=== PATIENT | male | born 1945 | race Caucasian/White ===

== ENCOUNTER 2017-01-28 22:08 | Emergency (ER) | payer OTHER ==
[2017-01-28 22:16] VITALS: TEMP 97.9
--- NOTE | 2017-01-28 23:36 | EDPHY ---
H & P Stated Complaint: Left head pressure with "flashes" in L field of vision, onset 1999 Time Seen by Provider: 01/28/17 22:22 HPI/ROS: HPI The patient presents with vision changes in his left eye which began at approximately 8:00 p.m. tonight when he was out on a walk with his family. Up he said he slowly began to see thin black wide in the temporal aspect of his left eye which then began to flash. This lasted for about 2 hours until he came to the emergency room if his symptoms have subsided. He now denies any complaint. He denies any blurry vision, double vision, visual field cuts such as sensation of a curtain going over his eye. He is complaining of a mild left- sided headache. He does not have any dizziness, weakness of his arms or legs, nausea or vomiting, recent falls. 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 He believes the last time he was in atrial fibrillation was in early December. He had an MRI performed in April of 2016 which showed some ischemic changes and given his history of atrial fibrillation that is why he began Eliquis recently. REVIEW OF SYSTEMS Constitutional: No fever, no chills. Eyes: No discharge. ENT: No sore throat. Cardiovascular: No chest pain, no palpitations. Respiratory: No cough, no shortness of breath. Gastrointestinal: No abdominal pain, no vomiting. Genitourinary: No hematuria. Musculoskeletal: No back pain. Skin: No rashes. Neurological: Mild headache. PMHx: Paroxysmal atrial fibrillation on Eliquis Soc Hx: Lives at home with his family PHYSICAL General Appearance: Alert, no distress Eyes: Pupils equal and round no pallor or injection, pupils are equal and reactive, extraocular movements are full, visual ulloa are full ENT, Mouth: Mucous membranes moist Respiratory: There are no retractions, lungs are clear to auscultation Cardiovascular: Regular rate and rhythm Gastrointestinal: Abdomen is soft and non-tender, no masses, bowel sounds normal Neurological: A&O, cranial nerves 2-12 intact, 5/5 strength upper and lower extremities, normal finger to nose and heel to traore testing, speech is fluid Skin: Warm and dry, no rashes Musculoskeletal: Neck is supple non tender Extremities: symmetrical, full range of motion Psychiatric: Patient is oriented X 3, there is no agitation Source: Patient, Family Exam Limitations: No limitations - Personal History Current Tetanus/Diphtheria Vaccine: Unsure Current Tetanus Diphtheria and Acellular Pertussis (TDAP): Unsure - Medical/Surgical History Hx Asthma: No Hx Chronic Respiratory Disease: No Hx Diabetes: No Hx Cardiac Disease: Yes Hx Renal Disease: No Hx Cirrhosis: No Hx Alcoholism: No Hx HIV/AIDS: No Hx Splenectomy or Spleen Trauma: No Other PMH: 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 PSH: heart ablation, TURP - Social History Smoking Status: Never smoked Constitutional: Initial Vital Signs Temperature (C) 36.6 C 01/28/17 22:12 Heart Rate 67 01/28/17 22:12 Respiratory Rate 14 01/28/17 22:12 Blood Pressure 138/74 H 01/28/17 22:12 O2 Sat (%) 94 01/28/17 22:12 O2 Delivery Mode Room Air Allergies/Adverse Reactions: Penicillins Allergy (Intermediate, Verified 03/18/13 01:14) Rash Home Medications: Medication Instructions Recorded Eliquis 01/28/17 Medical Decision Making - Diagnostics Imaging Results: CT scan of head without contrast demonstrates no acute hemorrhage, no obvious signs of acute stroke. Imaging: Discussed imaging studies w/ scallop raker Radiologist Procedures: Bedside ocular Ultrasound- performed and interpreted by me. Indication: Vision changes Findings: Left orbit with no obvious retinal detachment, no vitreus detachment , no sign of globe rupture Impression: No left-sided retinal detachment Differential Diagnosis: This is a 71-year-old man with history of paroxysmal AFib, recently started on Eliquis who presents from home with transient vision change, noting flashing lights in his left temporal visual field unilaterally, lasting for about 2 hours , now completely resolved. This is associated with a mild headache possibly. On exam, he has normal vital signs, his heart rate is regular, he has a completely normal neurologic exam and his NIH stroke score is 0. Differential diagnosis includes ischemic stroke, intracranial hemorrhage, retinal detachment, vitreous detachment, vitreous hemorrhage. In the emergency room, the patient was placed on the monitoring analyst with no events. CT scan of his head was obtained which showed no acute changes. He had no continued symptoms. On reassessment he continued to feel well. He believes he has a follow-up appointment tomorrow with Dr. Mirza his neurologist. The pre-existing plan was for the patient have an outpatient MRI and carotid Dopplers given his MRI which showed ischemic changes in April of last year. I have offered him MRI in the emergency department, however he declines. He would rather follow up with his neurologist and get the MRI as an outpatient. I explained that without this, we cannot completely exclude TIA. However, I feel his decision to return home is reasonable given that he feels well, and symptoms could likely be due to alternative diagnosis such is vitreus hemorrhage. He will be discharged in the care of his family. Departure - Departure Disposition: Home, Routine, Self-Care Clinical Impression: Changes in vision Condition: Good Instructions: Blurred Vision (ED) Additional Instructions: Please follow-up with your neurologist in the next few days. Return to the emergency room if you have any recurrent symptoms. Referrals: Shanell Shipman, LEANDRA [Primary Care Provider] - As per Instructions Gay Mirza DO [Non Staff and Non MD] - As per Instructions
[2017-01-28 23:48] VITALS: BP 121/76; PULSE 74; RESP 16; O2SAT 96
== END 2017-01-28 23:47 | disposition home or self-care (01) ==
DX: H53.8 Other visual disturbances (principal); Z86.73 Personal history of transient ischemic attack (TIA), and cerebral infarction without residual deficits

== ENCOUNTER → 2017-01-30 | Outpatient (CLI) | payer OTHER ==
[~2017-01-30] MED LIST: GADOBUTROL 10 ML VIAL IVP ONE
== END ==
LOC: FIMAGING 13:22
PROVIDERS: ATTEND Psychiatry & Neurology Neurology
DX: R41.3 Other amnesia (principal); G45.9 Transient cerebral ischemic attack, unspecified; G93.89 Other specified disorders of brain
CPT/HCPCS: 70553; 93880; A9585

== ENCOUNTER 2017-08-07 12:08 | Emergency (ER) | payer OTHER ==
[2017-08-07 12:27] VITALS: RESP 16; TEMP 97.3
--- NOTE | 2017-08-07 12:40 | CPEKG ---
Heart Rate: 77 RR Interval: 779 QRSD Interval: 100 QT Interval: 372 QTC Interval: 421 QRS Branch: 77 T Wave Branch: -15 EKG Severity - ABNORMAL ECG - EKG Impression: A-FLUTTER W/ PREDOM 4:1 AV BLOCK, A-RATE 306 EKG Impression: NONSPECIFIC T ABNORMALITIES, INFERIOR LEADS Electronically Signed By: Krista Morrow 09-Aug-2017 14:16:46
--- NOTE | 2017-08-07 12:59 | EDPHY ---
HPI/HX/ROS/PE/MDM Narrative: CHIEF COMPLAINT: Atrial flutter HPI: This patient is an anticoagulated (Eliquis) 72 year old male complaining of a sensation of atrial fibrillation onset yesterday evening. He feels weak and has a sensation of his heart jumping around. These symptoms are similar to his prior episodes of atrial fibrillation. He denies chest pain, shortness of breath , or pain or swelling in his legs. No other symptoms in the last few days. No fever or recent illness. His last oral intake was around 12pm today. REVIEW OF SYSTEMS: Aside from elements discussed in the HPI, a comprehensive 10-point review of systems was reviewed and is negative. PMH: Paroxysmal atrial fibrillation (Eliquis, s/p ablation). History of CVAs diagnosed by MRI. TURP. Past medical records reviewed including ED visit 01/28/17 for vision changes. SOCIAL HISTORY: . Lives in [place]. Retired. Former small business owner/operator. PCP. Dr. Shipman. PHYSICAL EXAM: General:Patient is alert, in no acute distress. ENT:Eyes are normal to inspection. ENT inspection normal. Neck: Normal inspection. Full range of motion. Respiratory:No respiratory distress. Breath sounds normal bilaterally. Cardiovascular: Regular rate and rhythm. Strong peripheral pulses. Normal cap refill. Abdomen:The abdomen is nontender to palpation. There are no peritoneal signs. There are normal bowel sounds. Back: Normal to inspection. No tenderness to palpation. Skin: Normal color. No rash. Warm and dry. Extremities: Normal appearance. Full range of motion. Neuro: Oriented x3. Normal motor function. Normal sensory function. ED Course: 72 y/o male with history of paroxysmal atrial fibrillation presents with weakness and malaise onset yesterday evening consistent with his prior episodes of atrial fibrillation. Plan for EKG, labs including CBC, chemistries, troponin. 12:20 EKG was ordered and interpreted by myself. Please see [employer] system for official reading. Atrial flutter, ventricular rate 77. Consulted with Dr. Bowles, video game repair technician, and reviewed EKG and care plan. Plan to administer 10mg IV Diltiazem, observe. If patient does not convert to sinus rhythm spontaneously, he will be admitted for further observation and likely undergo electrical cardioversion with Dr. Bowles. 13:55 After administration of diltiazem, patient spontaneoulsy converted to sinus rhythm. Plan for repeat EKG to confirm. 13:58 EKG was ordered and interpreted by myself. Please see [employer] system for official reading. Sinus rhythm, rate 70. 14:02 Reassessed patient. Plan to discharge home in good condition. He will follow up with cardiology. Return precautions discussed. The patient is comfortable with this plan. - Data Points Laboratory Results: Laboratory Results 08/07/17 13:01 08/07/17 13:01 08/07/17 08/07/17 13:01 13:01 WBC 7.46 10^3/uL 10^3/uL (3.80-9.50) RBC 5.31 10^6/uL 10^6/uL (4.40-6.38) Hgb 16.5 g/dL g/dL (13.7-17.5) Hct 48.6 % % (40.0-51.0) MCV 91.5 fL fL (81.5-99.8) MCH 31.1 pg pg (27.9-34.1) MCHC 34.0 g/dL g/dL (32.4-36.7) RDW 12.3 % % (11.5-15.2) Plt Count 219 10^3/uL 10^3/uL (150-400) MPV 11.2 fL fL (8.7-11.7) Neut % (Auto) 58.1 % % (39.3-74.2) Lymph % (Auto) 31.0 % % (15.0-45.0) [place] % (Auto) 8.7 % % (4.5-13.0) Eos % (Auto) 1.3 % % (0.6-7.6) Baso % (Auto) 0.8 % % (0.3-1.7) Nucleat RBC Rel Count 0.0 % % (0.0-0.2) Absolute Neuts (auto) 4.33 10^3/uL 10^3/uL (1.70-6.50) Absolute Lymphs (auto) 2.31 10^3/uL 10^3/uL (1.00-3.00) Absolute Monos (auto) 0.65 10^3/uL 10^3/uL (0.30-0.80) Absolute Eos (auto) 0.10 10^3/uL 10^3/uL (0.03-0.40) Absolute Basos (auto) 0.06 10^3/uL 10^3/uL (0.02-0.10) Absolute Nucleated RBC 0.00 10^3/uL 10^3/uL (0-0.01) Immature Gran % 0.1 % % (0.0-1.1) Immature Gran # 0.01 10^3/uL 10^3/uL (0.00-0.10) Sodium 144 mEq/L mEq/L (134-144) Potassium 4.3 mEq/L mEq/L (3.5-5.2) Chloride 103 mEq/L mEq/L (97-110) Carbon Dioxide 26 mEq/l mEq/l (22-31) Anion Gap 15 mEq/L mEq/L (8-16) BUN 16 mg/dL mg/dL (7-23) Creatinine 0.8 mg/dL mg/dL (0.7-1.3) Estimated GFR > 60 Glucose 77 mg/dL mg/dL (70-100) Calcium 9.5 mg/dL mg/dL (8.5-10.4) Troponin I < 0.012 ng/mL ng/mL (0.000-0.034) Medications Given: Discontinued Medications Diltiazem HCl (Cardizem 25 Mg/5 Ml Vial) 10 mg IVP EDNOW ONE Stop: 08/07/17 13:32 Last Admin: 08/07/17 13:45 Dose: 10 mg Sodium Chloride (Ns) 500 mls @ 1,000 mls/hr IV EDNOW ONE PRN Reason: Protocol Stop: 08/07/17 14:00 Last Admin: 08/07/17 13:42 Dose: 500 mls General Time Seen by Provider: 08/07/17 12:57 Initial Vital Signs: Initial Vital Signs Temperature (C) 36.3 C 08/07/17 12:26 Heart Rate 84 08/07/17 12:26 Respiratory Rate 16 08/07/17 12:26 Blood Pressure 112/65 08/07/17 12:26 O2 Sat (%) 98 08/07/17 12:26 O2 Delivery Mode Room Air Allergies/Adverse Reactions: Penicillins Allergy (Intermediate, Verified 08/07/17 12:25) Rash Home Medications: Medication Instructions Recorded Osman 01/28/17 Departure - Departure Disposition: Home, Routine, Self-Care Clinical Impression: Atrial flutter Qualifiers: Atrial flutter type: typical Qualified Code(s): I48.3 - Typical atrial flutter Condition: Good Instructions: Atrial Flutter (ED) Additional Instructions: 1. Follow up with your video game repair technician for further evaluation. 2. Return to the Emergency Department for fever, chest pain, shortness of breath , increasing pain, weakness, fainting or other worsening of condition. Referrals: Shanell Shipman NP [Primary Care Provider] - As per Instructions Williams Hebert MD [Medical Doctor] - As per Instructions Report Scribed for: Ismael Elmore Report Scribed by: Alivia Levin Date of Report: 08/07/17 Time of Report: 12:59 Physician Review and Approval Statement: Portions of this note were transcribed by an ED scribe. I personally performed the history, physical exam, and medical decision making; and confirm the accuracy of the information in the transcribed note.
[2017-08-07] MEDS ORDERED: DILTIAZEM 25 MG/5 ML VIAL IVP ONE (13:31)
[2017-08-07] MEDS ORDERED: NS 500 ML IV ONE (13:31)
[2017-08-07 13:40] LABS: % IMMATURE GRANULYOCYTES 0.1 % (0.0-1.1); ABSOLUTE IMMATURE GRANULOCYTES 0.01 10^3/uL (0.00-0.10); ADD DIFF? NO; ADD MORPH? NO; ADD SCAN? NO; ATYPICAL LYMPHOCYTE FLAG 0 (0-99); FRAGMENT RBC FLAG 0 (0-99); HEMATOCRIT 48.6 % (40.0-51.0); HEMOGLOBIN 16.5 g/dL (13.7-17.5); LEFT SHIFT FLG 0 (0-99); LIPEMIA HEMOLYSIS FLAG 90 (0-99); MEAN CELL HEMOGLOBIN 31.1 pg (27.9-34.1); MEAN CELL VOLUME 91.5 fL (81.5-99.8); MEAN PLATELET VOLUME 11.2 fL (8.7-11.7); PLATELET CLUMPS FLAG 0 (0-99); PLATELET COUNT 219 10^3/uL (150-400); RED BLOOD CELL COUNT 5.31 10^6/uL (4.40-6.38); RED CELL DISTRIBUTION WIDTH 12.3 % (11.5-15.2)
[2017-08-07 13:43] LABS: ANION GAP 15 mEq/L (8-16); CALCIUM 9.5 mg/dL (8.5-10.4); CARBON DIOXIDE 26 mEq/l (22-31); CHLORIDE 103 mEq/L (97-110); CREATININE 0.8 mg/dL (0.7-1.3); GLOMERULAR FILTRATION RATE > 60; GLUCOSE 77 mg/dL (70-100); POTASSIUM 4.3 mEq/L (3.5-5.2); SODIUM 144 mEq/L (134-144)
[2017-08-07 13:46] VITALS: PULSE 63
[2017-08-07 13:54] LABS: TROPONIN I < 0.012 ng/mL (0.000-0.034)
--- NOTE | 2017-08-07 14:01 | CPEKG ---
Heart Rate: 70 RR Interval: 857 P-R Interval: 232 QRSD Interval: 100 QT Interval: 392 QTC Interval: 423 P [place]: 53 QRS [place]: 56 T Wave [place]: 16 EKG Severity - ABNORMAL ECG - EKG Impression: SINUS RHYTHM EKG Impression: FIRST DEGREE AV BLOCK Electronically Signed By: Krista Morrow 09-Aug-2017 14:17:01
[2017-08-07 14:20] VITALS: BP 103/67; O2SAT 97
== END 2017-08-07 14:32 | disposition home or self-care (01) ==
DX: I48.3 Typical atrial flutter (principal); E86.9 Volume depletion, unspecified; Z79.01 Long term (current) use of anticoagulants; Z86.73 Personal history of transient ischemic attack (TIA), and cerebral infarction without residual deficits
CPT/HCPCS: 96374

== ENCOUNTER → 2017-09-11 | Outpatient (CLI) | payer OTHER | LOC: BHFA 14:45 | PROVIDERS: ATTEND Internal Medicine Cardiovascular Disease | DX: I48.91 Unspecified atrial fibrillation (principal); R06.02 Shortness of breath ==

== ENCOUNTER 2017-10-09 12:24 | Emergency (ER) | payer OTHER ==
[2017-10-09 12:30] VITALS: TEMP 98.1
--- NOTE | 2017-10-09 12:46 | EDPHY ---
H & P Stated Complaint: Slipped while ice skating, injury to left elbow. Time Seen by Provider: 10/09/17 12:45 HPI/ROS: HPI: This is a 72-year-old male who presents with Chief Complaint: Slipped while ice skating, injury to left elbow. Location: Left shoulder Quality: Injury Duration: Prior to arrival Signs and Symptoms: No bleeding, no radiation, no numbness, no weakness, no tingling, no incontinence, + decreased range of motion, no swelling, no pain Timing: Acute Severity: 04/03 Context: Presents with slipping on the ice while skating and falling directly on his left shoulder. He felt immediate, severe, pain in his left upper shoulder that was nonradiating in nature and worsened with movement. Patient is right-hand dominant with the history of atrial fibrillation and on Eliquis. Patient denies hitting his head/LOC/nausea/vomiting/neck pain. Remembers all of the events of the injury. Modifying Factors: None Comment: ROS: see HPI Constitutional: No fever, no chills, no weight loss Eyes: No blurred vision Respiratory: No shortness of breath, no cough Cardiovascular: No chest pain Gastrointestinal: No nausea, no vomiting no diarrhea Genitourinary: No dysuria Extremities: No myalgias Neurologic: No weakness, no numbness Skin: No rashes Hematologic: No bruising, no bleeding MEDICAL/SURGICAL/SOCIAL HISTORY: Medical history: MRI recently showed old CVAs, afib, PSH: heart ablation, TURP Social history: Retired. Family history noncontributory CONSTITUTIONAL: Extremely pleasant elderly white male who looks younger than stated age, awake and alert, no obvious distress HEENT: Atraumatic and normocephalic. NECK: supple, no midline tenderness, flexion 45 degrees, extension 45 degrees, right and left lateral flexion 45 degrees. No meningismus. Cardiovascular: Normal S1/S2, regular rate, regular rhythm, without murmur rub or gallop. PULMONARY/CHEST: Symmetrical and nontender. no crepitus. Clear to auscultation bilaterally. Good air movement. No accessory muscle usage. ABDOMEN: Soft, nondistended, nontender, no ecchymosis. PELVIC: no pain with rocking; bilateral hips flexion 125 degrees, extension 30 degrees, with no pain internal rotation and no pain external rotation. BACK: No midline tenderness, no paraspinous spasm, deep tendon reflexes 2/2, no pain with straight leg raise EXTREMITIES: 2/2 radial pulses, strength 5/5, left SHOULDER: Tenderness over the upper humerus near the neck; pain with supination and pronation. Held close to his body. Pain with any movement. Able to perform shoulder shrugs. Clavicle no deformity. no tenderness to palpation over AC joint. Left ELBOW: Full extension to 180, flexion to 150, no tenderness over medial epicondyle, no tenderness over lateral epicondyle, no effusion. Left WRIST: Extension to 70, flexion to 80, radial deviation to 20 degree, ulnar deviation to 30, no scaphoid tenderness, no tenderness over ulnar styloid, no tenderness over radial styloid./ DIP/PIP/MCP flexion/extension intact with good light touch sensation. no deformities, no clubbing, no cyanosis or edema. NEUROLOGICAL: no focal neuro deficits. GCS 15. Light touch sensation intact. SKIN: Warm and dry, no erythema. no rash. Good capillary refill. Source: Patient, Family (Daughter) Exam Limitations: No limitations - Personal History Current Tetanus Diphtheria and Acellular Pertussis (TDAP): Yes - Medical/Surgical History Hx Asthma: No Hx Chronic Respiratory Disease: No Hx Diabetes: No Hx Cardiac Disease: Yes Hx Renal Disease: No Hx Cirrhosis: No Hx Alcoholism: No Hx HIV/AIDS: No Hx Splenectomy or Spleen Trauma: No Other PMH: 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 PSH: heart ablation, TURP - Social History Smoking Status: Never smoked Constitutional: Initial Vital Signs Temperature (C) 36.7 C 10/09/17 12:26 Heart Rate 78 10/09/17 12:26 Respiratory Rate 20 10/09/17 12:26 Blood Pressure 167/97 H 10/09/17 12:26 O2 Sat (%) 95 10/09/17 12:26 O2 Delivery Mode Room Air Allergies/Adverse Reactions: Penicillins Allergy (Intermediate, Verified 08/07/17 12:25) Rash Home Medications: Medication Instructions Recorded Eliquis 01/28/17 oxyCODONE/APAP 5/325 [Percocet 1 - 2 tab PO Q4H PRN #20 tab 10/09/17 5/325 (*)] Medical Decision Making - Diagnostics Imaging Results: Imaging Impressions Shoulder X-Ray 10/09/17 12:31 Impression: Complex nondisplaced fractures proximal left humeral shaft extending to the superolateral aspect of the left humeral head and greater tuberosity. Procedures: Procedure: Splint placement. A left coaptation splint and sling was applied by the Emergency Room train control technician. After application of the splint I returned and re-examined the patient. The splint was adequately immobilizing the joint and distal to the splint the patient's circulation and sensation was intact. ED Course/Re-evaluation: X-ray and oral medication ordered X-ray my read shows complex consisting of 2-3 pieces humeral neck fracture; mildly displaced. Placed in a coaptation splint and sling 1330: ED decision to consult: Spoke with Dr. Camejo, Orthopedics, who reviewed the films and advised pad a coaptation splint and follow up on Friday with him. No signs of neurovascular compromise/tenting of skin/compartment syndrome/ extremities and joints examined above and below area of concern and are neurovascularly intact. This patient was seen under the supervision of my secondary supervising physician. I evaluated care for this patient independently. Discussed this patient with Dr. Krause who did not see the patient. Differential Diagnosis: Differential diagnosis includes but is not limited to axillary nerve injury, clavicle fracture, humerus fracture, shoulder dislocation. - Data Points Medications Given: Discontinued Medications Oxycodone/Acetaminophen (Percocet 5/325) 2 tab PO EDNOW ONE Stop: 10/09/17 13:03 Last Admin: 10/09/17 13:05 Dose: 2 tab Departure - Departure Disposition: Home, Routine, Self-Care Clinical Impression: Fracture of neck of left humerus Qualifiers: Encounter type: initial encounter Fracture type: closed Qualified Code(s): S42.212A - Unspecified displaced fracture of surgical neck of left humerus, initial encounter for closed fracture Condition: Good Instructions: Scapular Fracture (ED), Splint Care (ED), R.I.C.E. Treatment (ED) Additional Instructions: Keep the splint dry and in place until seen by Orthopedics for follow-up. Use the sling for comfort. Use Percocet every 6 hours as needed for severe/break through pain. Apply ice for 30 minutes at a time; 2-3 times per day for the next 1-2 days. Call Orthopedics, Dr. Camejo' office, tomorrow to schedule appointment for next Friday, October 15, at which time they will evaluate and recommend with you if conservative management versus surgery is indicated. Return to the ER immediately if you experience new or worsening pain, discoloration, numbness, tingling, or any other symptoms that concerns you. Referrals: Shanell Shipman NP [Primary Care Provider] - As per Instructions Julio Camejo MD [Medical Doctor] - As per Instructions Prescriptions: oxyCODONE/APAP 5/325 [Percocet 5/325 (*)] 1 - 2 tab PO Q4H PRN #20 tab PRN Reason: Pain, Severe
[2017-10-09] MEDS ORDERED: OXYCODONE/APAP 5/325 TAB PO ONE (13:02)
[2017-10-09] MEDS ORDERED: OXYCODONE/APAP 5/325 TAB ONE ×2 (13:03)
[2017-10-09 14:51] VITALS: BP 138/71; PULSE 70; RESP 14; O2SAT 98
== END 2017-10-09 14:50 | disposition home or self-care (01) ==
DX: S42.212A Unspecified displaced fracture of surgical neck of left humerus, initial encounter for closed fracture (principal); Z79.01 Long term (current) use of anticoagulants; Z86.73 Personal history of transient ischemic attack (TIA), and cerebral infarction without residual deficits; V00.211A Fall from ice-skates, initial encounter; Y99.8 Other external cause status; Y93.21 Activity, ice skating

== ENCOUNTER → 2017-12-27 | Outpatient (CLI) | payer OTHER | LOC: FCPNEURO 20:00 | PROVIDERS: ATTEND Psychiatry & Neurology Sleep Medicine | DX: G47.31 Primary central sleep apnea (principal); G47.33 Obstructive sleep apnea (adult) (pediatric); G47.39 Other sleep apnea ==

== ENCOUNTER → 2018-01-30 | Outpatient (CLI) | payer OTHER | LOC: FCPNEURO 21:30 | PROVIDERS: ATTEND Psychiatry & Neurology Sleep Medicine | DX: G47.33 Obstructive sleep apnea (adult) (pediatric) (principal); G47.61 Periodic limb movement disorder ==

== ENCOUNTER → 2018-05-06 | Outpatient (CLI) | payer OTHER | LOC: FIMAGING 19:27 | DX: M75.102 Unspecified rotator cuff tear or rupture of left shoulder, not specified as traumatic (principal); S43.432S Superior glenoid labrum lesion of left shoulder, sequela; M75.22 Bicipital tendinitis, left shoulder; Z87.81 Personal history of (healed) traumatic fracture ==